=== PATIENT | female | born 1965 | race Two or more races ===

== ENCOUNTER 2019-07-08 22:29 | Emergency (ER) | payer SELFPAY ==
[~2019-07-08] VITALS: Ht 162.6 cm; Wt 63.5 kg
[2019-07-08] MEDS ORDERED: LORazepam Inj 2mg/ml 1ml IV ONE (22:45)
--- NOTE | 2019-07-08 22:45 | NUR ---
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 pt is accompanied by Dr. 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 patient disoriented but responsive. changed into gown; attached to monitor. bed locked at lowest position; side rails raised.
[2019-07-08 23:00] VITALS: BP 133/84
--- NOTE | 2019-07-08 23:00 | NUR ---
ED Nurse Note: iv access established. blood collected; sent down to lab.
--- NOTE | 2019-07-08 23:14 | NUR ---
ED Nurse Note: Dr. Peng # [phone]
--- NOTE | 2019-07-08 23:15 | Emergency Room Report ---
History of Present Illness General Chief Complaint: Altered Mental Status Source: Patient Present Illness HPI 3-year-old female brought in by her employer for altered mental status. 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 She went to his place but then was acting abnormal. She was vomiting and was hyperventilating. He is a doctor so he brought her here to the ER to be evaluated. On the way here he found out that she was at another employers prior to coming to his place. She ate some candy that had marijuana in it. It had 25 mg of THC. She never had this before. Initially unable to get anything from the patient because of her condition. Afterward she admits to eating it for the first time. There is no other drug use. No alcohol. No suicidal thought or homicidal thought. Allergies: Coded Allergies: UNABLE TO ASSESS (Unverified , 07/08/19) Patient History Past Medical History: see triage record, old chart reviewed, HTN Past Surgical History: other Pertinent Family History: none Social History: Denies: smoking Last Menstrual Period: n/a Now: No Immunizations: other Reviewed Nursing Documentation: PMH: Agreed; PSxH: Agreed Nursing Documentation-PMH Hx Hypertension: Yes Review of Systems Eye: Denies: eye pain, blurred vision ENT: Denies: ear pain, nose congestion, throat swelling Respiratory: Denies: cough, shortness of breath Cardiovascular: Denies: chest pain, palpitations Gastrointestinal: Reports: nausea, vomiting; Denies: abdominal pain, diarrhea Musculoskeletal: Denies: back pain, joint pain Skin: Denies: rash Neurological: Reports: headache, dizziness; Denies: numbness Endocrine: Denies: increased thirst, increased urine Hematologic/Lymphatic: Denies: easy bruising All Other Systems: negative except mentioned in HPI Physical Exam Vital Signs Date Time Temp Pulse Resp B/P (MAP) Pulse Ox O2 Delivery O2 Flow Rate FiO2 07/08/19 22:40 99.0 74 18 133/84 (100) 100 Room Air Vitals normal Sp02 EP Interpretation: reviewed, normal General Appearance: well appearing, no apparent distress, alert Head: normocephalic, atraumatic Eyes: bilateral eye PERRL, bilateral eye EOMI ENT: hearing grossly normal, normal pharynx Neck: full range of motion, supple, no meningismus Respiratory: chest non-tender, lungs clear, normal breath sounds Cardiovascular #1: regular rate, rhythm, no murmur Gastrointestinal: normal bowel sounds, non tender, no mass, no organomegaly, no bruit, non-distended Musculoskeletal: back normal, normal range of motion, gait/station normal Psychiatric: anxious Medical Decision Making Diagnostic Impression: Primary Impression: Cannabis intoxication Qualified Codes: F12.920 - Cannabis use, unspecified with intoxication, uncomplicated Additional Impression: Panic attack ER Course Patient with cannabis intoxication and drug-induced panic attack. She is sleeping and comfortable now. Will discharge home when she is more clinically sober. Rhythm Strip Diag. Results EP Interpretation: yes Rate: 66 Rhythm: NSR, no PVC's, no ectopy Last Vital Signs Date Time Temp Pulse Resp B/P (MAP) Pulse Ox O2 Delivery O2 Flow Rate FiO2 07/08/19 22:40 99.0 74 18 133/84 (100) 100 Room Air Status: improved Disposition: HOME, SELF-CARE Condition: Improved Additional Instructions: Abstain from marijuana. Follow-up with your doctor in 7 days. Return if worse. Pablo Vinson MD Jul 08, 2019 23:15
[2019-07-08 23:26] LABS: BASOPHILS % (AUTO) 0.4 % (0.0-2.0); EOSINOPHILS % (AUTO) 0.3 % (0.0-3.0); HEMATOCRIT 37.7 % (37.0-47.0); HEMOGLOBIN 14.2 G/DL (12.0-16.0); LYMPHOCYTES % (AUTO) 10.7 % (20.0-45.0); MEAN CORPUSCULAR VOLUME 88 FL (80-99); MONOCYTES % (AUTO) 5.4 % (1.0-10.0); NEUTROPHILS % (AUTO) 83.2 % (45.0-75.0); PLATELET COUNT 180 K/UL (150-450); RED BLOOD COUNT 4.29 M/UL (4.20-5.40); RED CELL DISTRIBUTION WIDTH 10.8 % (11.6-14.8); WHITE BLOOD COUNT 11.9 K/UL (4.8-10.8)
[2019-07-08 23:34] LABS: ANION GAP 11 mmol/L (5-15); BLOOD UREA NITROGEN 24 mg/dL (7-18); CALCIUM 9.3 MG/DL (8.5-10.1); CARBON DIOXIDE 30 MMOL/L (21-32); CHLORIDE 103 MMOL/L (98-107); CREATININE 0.7 MG/DL (0.55-1.30); POTASSIUM 2.9 MMOL/L (3.5-5.1); SODIUM 144 MMOL/L (136-145)
[2019-07-09 01:00] VITALS: BP 100/65
--- NOTE | 2019-07-09 01:00 | NUR ---
ED Nurse Note: patient sleeping in bed with no acute distress. vss. repositioned for comfort. provided with warm blankets.
[2019-07-09 03:00] VITALS: BP_SYST 100; BP_DIAS 60; BP_DIAS 65
--- NOTE | 2019-07-09 03:00 | NUR ---
ED Nurse Note: patient sleeping in bed with no acute distress. arousable to name. vss. will continue to monitor.
[2019-07-09 04:45] VITALS: BP 108/83
--- NOTE | 2019-07-09 04:45 | NUR ---
ED Nurse Note: Received report from Victor Hugo bloom RN. patient in bed, sleeping. will discharge home once woken up. will continue to monitor
--- NOTE | 2019-07-09 05:50 | NUR ---
ED Nurse Note: Patient is awake and responding to questions, provided nourishment. patient is able to tell what happened through driver merchandiser. informed patient that Dr. Peng will pick her up later in the morning. patient is in no distress at this time. will continue to monitor
[2019-07-09 07:43] VITALS: BP 119/58
--- NOTE | 2019-07-09 07:43 | NUR ---
ER DISCHARGE NOTE: Patient is cleared to be discharged per ERMD, pt is aox4, on room air, with stable vital signs. pt was given dc instructions, pt was able to verbalize understanding, pt id band and iv site removed without complications. pt is able to ambulate with steady gait. pt took all belongings and left with Dr Corrigan.
== END 2019-07-09 07:43 | disposition home or self-care (01) ==
LOC: EMR 23:21
DX: F12.920 Cannabis use, unspecified with intoxication, uncomplicated (principal); F41.0 Panic disorder [episodic paroxysmal anxiety]; I10 Essential (primary) hypertension
CPT/HCPCS: 36415; 80048; 85025; 96361; 96374; 96375; 99284; J2405; J7030